=== PATIENT | female | born 1940 | race Caucasian/White ===

== ENCOUNTER → 2016-10-15 | Outpatient (CLI) | payer OTHER ==
[~2016-10-15] MED LIST: ACT15 PO; ATOR-22 PO; ERGO1TAB12 PO; FERR1TAB23 PO; GLC850 PO; INSULIN ISOPHANE SC; LISI40TA PO; LSX20 PO; LTMOPS OPR; MELA3CAP PO; NRV/10 PO; WARF1TAB PO; [UNRECOGNIZED DRUG - OTHER] SC
--- NOTE | 2016-10-15 13:48 | MAMMOGRAPHY REPORT ---
BILATERAL DIGITAL SCREENING MAMMOGRAM WITH CAD: 10/15/2016 CLINICAL HISTORY: Routine screening. Patient has no complaints. TECHNIQUE: Current study was also evaluated with a Computer Aided Detection (CAD) system. Bilateral CC and MLO views were obtained. COMPARISON: Comparison is made to exams dated: 10/11/2014 mammogram, 10/14/2015 mammogram, 10/10/2013 m ammogram, 10/09/2012 mammogram, 10/07/2011 mammogram, and 10/05/2010 mammogram - [facility] enter. BREAST COMPOSITION: There are scattered areas of fibroglandular density in both breasts. FINDINGS: No suspicious masses, calcifications, or areas of architectural distortion are noted in ei ther breast. There has been no significant interval change compared to prior exams. Scattered bilater al benign-appearing calcifications are not significantly changed. Small benign-appearing mass in the right upper outer quadrant is stable dating back to at least the 2009 exam, and is benign and likely represents an intramammary lymph node. A partially visualized lymph node in the left superior poste rior breast on the MLO view is stable. IMPRESSION: ACR BI-RADS CATEGORY 2: BENIGN There is no mammographic evidence of malignancy. A 1 year screening mammogram is recommended. The pa tient will receive written notification of the results. Approximately 10% of breast cancers are not detected with mammography. A negative mammographic report should not delay biopsy if a clinically suggestive mass is present. Apolonia Moran M.D. /:10/15/2016 12:48:33 Mds Coordinator: Breanna Duffy, [facility] letter sent: Normal 1/2 BI-RADS Code: ACR BI-RADS Category 2: Benign
== END | disposition home or self-care (01) ==
LOC: C.MAMM 11:05
PROVIDERS: ATTEND Family Medicine
DX: Z12.31 Encounter for screening mammogram for malignant neoplasm of breast (principal)